=== PATIENT | male | born 1990 | race Caucasian/White ===

== ENCOUNTER 2019-10-22 18:19 | Emergency (ER) | payer MEDICAID, OTHER ==
[~2019-10-22] VITALS: Ht 188 cm; Wt 100.2 kg
[~2019-10-22 18:19] MED LIST: AMOX500C2 PO
--- NOTE | 2019-10-22 18:50 | NUR ---
c/o chest sharp pain since sunday, on zpak for lung infection started today. Patient a/ox4, breathing even and unlabored, no sob noted, kept comfortable. Changed into gown, attached to the manager monitoring.
[2019-10-22] MEDS ORDERED: IBUPROFEN 600 MG TABLET PO ONE ×2 (19:00→19:06)
[2019-10-22 19:15] VITALS: BP 144/88
--- NOTE | 2019-10-22 20:25 | NUR ---
Patient discharged to home in stable condition. Written and verbal after care instructions given. Patient verbalizes understanding of instruction.
== END 2019-10-22 20:26 | disposition home or self-care (01) ==
LOC: ER 18:25
DX: R07.89 Other chest pain (principal); F12.10 Cannabis abuse, uncomplicated; Z79.899 Other long term (current) drug therapy
CPT/HCPCS: 71045-TC